=== PATIENT | female | born 1940 | race Caucasian/White ===

== ENCOUNTER 2016-12-14 15:12 | Inpatient (IN) | payer OTHER ==
[~2016-12-14] VITALS: Ht 149.9 cm; Wt 60.4 kg
[~2016-12-14 15:12] MED LIST: ANTIVERT 25MG #1 PAC PO; ATORVASTATIN CA80 MG PO; BABY ASPIRIN CH81 MG PO; CARVEDILOL6.25 MG PO; LIPOFLAVONOID1 TAB PO; LISINOPRIL20 MG PO; METFORMIN HCL500 MG PO; NITROSTAT0.4 MG PO; VICODIN5-300 PO
--- NOTE | 2016-12-14 15:41 | ED GENERAL ADULT ---
History of Present Illness General Chief Complaint: General Adult Stated Complaint: SIB FOR LOW BP Source: patient, old records Exam Limitations: no limitations Vital Signs & Intake/Output Vital Signs & Intake/Output Vital Signs Date Time Temp Pulse Resp B/P B/P Pulse O2 O2 Flow FiO2 Mean Ox Delivery Rate 12/15 0800 97.9 85 20 150/64 92 Nasal 2.0L Cannula 12/15 0017 Nasal 2.0L Cannula 12/14 2125 99.0 92 18 102/56 95 12/14 2037 98.9 89 18 115/56 96 Nasal 2.0L Cannula 12/14 1827 85 113/58 96 Nasal 2.0L Cannula 12/14 1728 80 109/56 95 Nasal 2.0L Cannula 12/14 1636 84 98/56 12/14 1553 97 Nasal 2.0L Cannula 12/14 1524 98.4 93 21 85/48 89 Room Air ED Intake and Output 12/15 0000 12/14 1200 Intake Total 0 Output Total Balance 0 Intake, Oral 0 Triage Note: PT TO ED FOR FOR 5 DAYS OF NAUSEA, VOMITING, GENERALIZED WEAKNESS AND DIARRHEA. PT HYPOTENSIVE IN TRIAGE. Triage Nurses Notes Reviewed? yes Onset: Abrupt Duration: week(s): (1), constant Timing: recent history Injury Environment: home Severity: moderate Severity Numbers: 6 No Modifying Factors: none Associated Symptoms: cough, DIARRHEA, POST TUSSIVE VOMITTING HPI: 76-year-old female history of coronary artery disease diabetes hypertension high cholesterol presents to ER with her family for evaluation complaining of generalized malaise and diarrhea for 1 week associated with nonproductive cough and posttussive vomiting for the past few days. Patient denies fevers chills however states she has not had anything to eat or drink in the past 3 days. On arrival patient is noted to be hypotensive. There's been no change in her mental status no recent fall or head trauma. Patient has not taken anything for her symptoms they called her primary care physician who referred her to the ER no sick contacts recent travel. (IRENE ART,BEATRIZ) Allergies Coded Allergies: Iodinated Contrast Media - Oral and (Severe, BLACKED OUT 12/15/16) MDX - [place] ([place]) (Mild, SINUS 11/20/13) adhesive tape (Mild, RASH 12/15/16) latex (Mild, RASH 12/15/16) atropine (From ) (UNKNOWN 12/15/16) hyoscyamine (From ) (UNKNOWN 12/15/16) phenobarbital (From ) (UNKNOWN 12/15/16) scopolamine (From ) (UNKNOWN 12/15/16) Uncoded Allergies: RAGWEED (Mild, SINUS 11/20/13) Reconcile Medications Acetaminophen (Tylenol Extra Strength) 500 MG TABLET 250 MG PO BID pain ( Reported) Aspirin (Children's Aspirin) 81 MG TAB 81 MG PO DAILY SUPPLEMENT (Reported) Atorvastatin Calcium (Lipitor) 80 MG TAB 1 TAB PO DAILY CHOLESTEROL (Reported ) Carvedilol 12.5 MG TABLET 12.5 MG PO BID blood pressure (Reported) Cetirizine HCl (Zyrtec) 10 MG CAPSULE 10 MG PO DAILY allergy relief (Reported ) Cholecalciferol (Vitamin D3) (Vitamin D3) 1,000 UNIT CAPSULE 1 CAP PO DAILY bone health (Reported) Lisinopril 10 MG TABLET 1 TAB PO DAILY blood pressure (Reported) Meclizine HCl 12.5 MG TABLET 1 TAB PO BID DIZINESS (Reported) (GABBY MARQUEZ,ERNESTINA) Past History Travel History Traveled to [place] past 21 day No Medical History Any Pertinent Medical History? 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 No (BEATRIZ ZIMMERMAN) Review of Systems Review of Systems Constitutional: Reports: see HPI. All Other Systems: Reviewed and Negative Comments Review of systems: See HPI, All other systems negative. Constitutional, no chills no fever, no malaise HEENT: No visual changes no sore throat no congestion Cardiovascular: No chest pain , no palpitation Skin: no rashes, no change in skin Respiratory: No dyspnea no cough no sputum GI: No nausea no vomiting, no diarrhea, : No dysuria Muscle skeletal: No joint pain, no joint swelling, no back pain Neurologic: No numbness no confusion, no headache Psych: No stress n Heme/endocrine: No bruising Immunology: No lymphadenopathy (BEATRIZ ZIMMERMAN) Physical Exam Physical Exam General Appearance: well developed/nourished, alert, awake Comments: Well-developed well-nourished person in no acute distress HEENT: Normal EENT exam; PERRL, EOMI,. HEAD is atraumatic. moist mucous membranes. Neck: Supple, normal range of motion Back: Nontender, no CVA tenderness. Full range of motion Cardiovascular: Regular rate and rhythms no murmurs rubs Respiratory: Chest nontender.There were no bony deformities, no asymmetry. No respiratory distress. Patient speaking in full complete sentences. Breath sounds clear to auscultation bilaterally: NO W/R/R Abdomen: Soft, nontender nondistended, no appreciable organomegaly. Normal bowel sounds. No rebound/guarding, Extremity: No edema, full range of motion of extremities, normal and equal pulses bilaterally, 5 out of 5 strength noted to bilateral upper and lower extremities Neuro: Alert oriented x3, motor sensory normal, cranial nerves II through XII grossly intact. There were no obvious focal neurologic abnormalities. Skin: No appreciable rash on exposed skin, skin is warm and dry. Psych: Mood and affect is normal, memory and judgment is normal. Core Measures ACS in differential dx? Yes CVA/TIA Diagnosis: No Severe Sepsis Present: Yes BC x2: Yes Lactic Acid x2: Yes IV ABX Broad Spectrum: Yes NS/LR Started: Yes Septic Shock Present: No (BEATRIZ ZIMMERMAN) ED Sepsis Exam Date of Focused Sepsis Exam: 12/14/16 Time of Focused Sepsis Exam: 1741 Sepsis Cardiac Exam: Regular Rate/Rhythm Sepsis Resp Exam: [place] Sepsis Cap Refill Exam: <2 Sec Sepsis Peripheral Pulse Exam: Normal Sepsis Peripheral Pulse Location: Radial Sepsis Skin Color Exam: Pale Skin Temp/Moisture Exam: Warm/Dry (BEATRIZ ZIMMERMAN) Progress Differential Diagnoses I considered the following diagnoses in my evaluation of the patient: [PNA, RAJ, ELECTROLYTE ABNORMALITY, SEPSIS, COLITIS, UTI, GI BLEED, ANEMIA, AMI Plan of Care: Orders Procedure Date/time Status Gluten Free Diet 12/15 B Active SWALLOW EVALUATION 12/15 0900 Active PT Evaluate & Treat 12/15 0800 Active MISTAKE 12/15 0700 Active MAGNESIUM 12/15 0655 Complete CBC WITHOUT DIFFERENTIAL 12/15 0600 Complete BASIC ELECTROLYTES PLUS BUN&CR 12/15 0600 Complete Vital Signs 12/15 0016 Active Teach/Educate 12/15 0016 Active Pain Treatment and Response 12/15 0016 Active Nutritional Intake, Monitor 12/15 0016 Active Isolation 12/15 0016 Active Intake & Output 12/15 0016 Active Patient Care Conference 12/15 0016 Active Activity/Ambulation 12/15 0016 Active PT EVAL LOW COMPLEX 20 MIN 12/15 UNK Complete Gait Training 12/15 UNK Complete House Staff 12/15 UNK Active Lab Add-on Test 12/15 UNK Active MISSING MEDICATION FORM 12/15 UNK Active Regular Diet 12/14 D Complete C.DIFFICILE 12/14 2247 Active Patient Data 12/14 1857 Active LACTIC ACID 12/14 1840 Complete TRC EVALUATION (GEN) 12/14 1818 Active LOWER RESPIRATORY CULTURE 12/14 1818 Active Pathway - chart 12/14 1800 Active Code Status 12/14 1800 Active Patient Data 12/14 1742 Active Admit to inpatient 12/14 1739 Active Vital Signs 12/14 1739 Active Code Status 12/14 1739 Complete GLYCOSYLATED HGB 12/14 1554 Complete FOLIC ACID 12/14 1554 Complete VITAMIN B12 12/14 1554 Complete CULTURE,URINE 12/14 1540 Active BLOOD CULTURE 12/14 1540 Active URINALYSIS 12/14 1540 Complete TROPONIN LEVEL 12/14 1540 Complete LACTIC ACID 12/14 1540 Complete COMPREHENSIVE METABOLIC PANEL 12/14 1540 Complete CBC WITHOUT DIFFERENTIAL 12/14 1540 Complete B-TYPE NATRIURETIC PEP (BNP) 12/14 1540 Complete TYPE & SCREEN (NOT X-MATCH) 12/14 1540 Complete Intake & Output 12/14 1536 Complete House Staff 12/14 UNK Active Lab Add-on Test 12/14 UNK Active VTE Mechanical Prophylaxis 12/14 UNK Active Vital Signs 12/14 UNK Active Telemetry/Shipping And Receiving Material Handler 12/14 UNK Active Hemoccult 05/16 UNK Active CMS- Neurovascular Checks 12/14 UNK Active Current Medications Sig/Luz Elena Start time Last Medication Dose Stop Time Status Admin Atorvastatin Calcium 80 MG 1700 12/15 1700 AC (Lipitor) Aspirin 81 MG DAILY 12/15 1000 AC 12/15 (Aspirin) 1024 Ceftriaxone Sodium 1,000 MG DAILY 12/15 1000 AC 12/15 (Rocephin) 1023 Cholecalciferol 1,000 IU DAILY 12/15 1000 AC 12/15 (Vitamin D) 1024 Loratadine 10 MG DAILY PRN 12/15 0745 AC 12/15 (Claritin) 1024 Heparin Sodium 5,000 UNIT Q8 12/14 2200 AC 12/15 (Porcine) 0600 Meclizine HCl 12.5 MG BID 12/14 2200 AC 12/15 (Antivert) 1024 Acetaminophen 650 MG Q6P PRN 12/14 1800 AC (Tylenol) Acetaminophen 1,000 MG Q6P PRN 12/14 1800 AC (Ofirmev) Hydromorphone HCl 0.5 MG Q4P PRN 12/14 1800 AC (Dilaudid) Laboratory Tests 12/15/16 0655: Anion Gap 12, Estimated GFR > 60, BUN/Creatinine Ratio 50.0 H, Magnesium 1.7, CBC w Diff MAN DIFF ORDERED, RBC 3.83 L, MCV 62.2 L, MCH 20.4 L, RDW 14.7 H, MPV 7.4, Segmented Neutrophils 60, Lymphocytes 27, Monocytes 10 H, Eosinophils 3, Platelet Estimate VERIFIED BY SMEAR, Hypochromic-Microcytic 1+, Poikilocytosis 1+, Anisocytosis 1+, Microcytic Cells 2+, PUBS MCHC 32.8 L 12/14/162031: Lactic Acid 0.9 12/14/16 1712: Urinalysis LIGHT H, Urine Color YEL, Urine Clarity CLDY H, Urine pH 5.5, Ur Specific [place] 1.025, Urine Protein 100 H, Urine Ketones TRACE H, Urine Nitrite NEG, Urine Bilirubin NEG@ICTO, Urine Urobilinogen 1.0, Ur Leukocyte Esterase LARGE H, Ur Microscopic SEDIMENT EXAMINED, Urine RBC RARE, Urine WBC 15-25 H, Ur Epithelial Cells MANY H, Urine Bacteria PACKD H, Hyaline Casts RARE H, Urine Mucus MOD H, Urine Hemoglobin NEG, Urine Glucose NEG 12/14/16 1554: Anion Gap 17 H, Estimated GFR 44 L, BUN/Creatinine Ratio 26.7 H, Glucose 118 H, Hemoglobin A1c 6.4 H, Lactic Acid 2.6 H, Calcium 9.2, Total Bilirubin 0.6, AST 27, ALT 41, Alkaline Phosphatase 68, Troponin I < 0.01, Zsu-X-Exnagbdmnwe Pept 387 H, Total Protein 7.4, Albumin 4.2, Globulin 3.2, Albumin/Globulin Ratio 1.3, Vitamin B12 293, Folate 10.2, CBC w Diff MAN DIFF ORDERED, RBC 4.75, MCV 63.5 L, MCH 20.3 L, RDW 14.6 H, MPV 7.3 L, Gran % 67.7, Lymphocytes % 25.0, Monocytes % 6.7, Eosinophils % 0.3, Basophils % 0.3, Absolute Granulocytes 8.4 H, Absolute Lymphocytes 3.1, Absolute Monocytes 0.8 H, Absolute Eosinophils 0, Absolute Basophils 0, Platelet Estimate ADEQUATE, Hypochromic- Microcytic 1+, Poikilocytosis 1+, Target Cells RARE, Stomatocytes 1+, Elliptocytes RARE, PUBS MCHC 32.0 L Microbiology 12/14 2247 STOOL: Clostridium difficile Toxin A & B - COLB 12/14 1818 LOWER RESP: Respiratory Culture - COLB 12/14 1818 LOWER RESP: Gram Stain - COLB 12/14 1800 BLOOD: Blood Culture - [facility]KST 12/14 1712 URINE ROUT: Urine Culture - RES BETA STREP GROUP B 12/14 1630 BLOOD: Blood Culture - [facility] Labs ordered old records reviewed case discussed with Dr. Harvey who evaluated the patient agrees with plan IV fluids running DuoNeb ordered pts h/h at baseline case d/w pt and family need for admission. d/w dr meza will admit rocephin 1g iv ordered (BEATRIZ ZIMMERMAN) Patient evaluated at bedside with RUBENS Hooker. Awake, mentating. Appears very dry. Improving BP afterrepeat fluid boluses. Possible syncopa episode, will place on telemetry. (GABBY MARQUEZ,ERNESTINA) Diagnostic Imaging: Viewed by Me: Radiology Read. Discussed w/RAD: Radiology Read. Radiology Impression: PATIENT: LILLIE ROGERS PRESENT AGE: 76 PATIENT ACCOUNT NO: [id number] : 39 LOCATION: [facility] ORDERING PHYSICIAN: BEATRIZ ART SERVICE DATE: 12/14/16-6731 EXAM TYPE: RAD - XRY- PORTABLE CHEST XRAY EXAMINATION: XR PORTABLE CHEST CLINICAL INFORMATION: Pneumonia hypotension dyspnea COMPARISON: Chest x-ray January 2014 TECHNIQUE: AP portable a degree upright view FINDINGS: Persistent prominent elevation of the left hemidiaphragm unchanged. Minimal scarring or discoid atelectasis at the left base similar to prior. The right lung is clear. The cardiac silhouette and pulmonary vascularity are normal. There is some calcification of the dorsal aorta. There is a convex right curvature of the dorsal spine unchanged. IMPRESSION: No acute disease. Stable elevation of the left hemidiaphragm. Minimal scar or recurrent discoid atelectasis at the left base. DICTATED BY: BRENNA AMARAL MD DATE/TIME DICTATED:12/14/161618 HACKLER DOLL WIGS: [place] DATE/TIME TRANSCRIBED:12/14/161618 CONFIDENTIAL, DO NOT COPY WITHOUT APPROPRIATE AUTHORIZATION. <Electronically signed in Other Vendor System> SIGNED BY: BRENNA AMARAL MD 12/14/161625 Initial ED EKG: nsr at 80, pacs, no acute st seg changes Prior EKG: unchanged (04/2015) (BEATRIZ ZIMMERMAN) Differential Diagnoses I considered the following diagnoses in my evaluation of the patient: (GABBY MARQUEZ,ERNESTINA) Departure Departure Time of Disposition: 1740 Disposition: HOME OR SELF CARE Condition: Stable Clinical Impression Primary Impression: Sepsis Secondary Impressions: Dehydration, Lactic acidosis Referrals: LUCIA MARQUEZ,SHAUN Aden (PCP/Family) Departure Forms: Customer Survey General Discharge Information Admission Note Spoke With: ROSETTE GALDAMEZ MD Documentation of Exam: Documentation of any treatments & extenuating circumstances including Concerns Regarding Discharge (functional status, medication knowledge or non-compliance, living conditions, etc.) that warrant an admission rather than observation: IV antibiotics IV fluids trend labs and cultures premature discharge would BE medically harmful (BEATRIZ ZIMMERMAN) PA/TRIM AND BURR OPERATOR Co-Sign Statement Statement: ED Attending supervision documentation- [X] I saw and evaluated the patient. I have also reviewed all the pertinent lab results and diagnostic results. I agree with the findings and the plan of care as documented in the PA's/TRIM AND BURR OPERATOR's documentation. [X] I have reviewed the ED Record and agree with the PA's/TRIM AND BURR OPERATOR's documentation. [] Additions or exceptions (if any) to the PAs/TRIM AND BURR OPERATOR's note and plan are summarized below: [] (GABBY MARQUEZ,ERNESTINA) Critical Care Note Critical Care Note Critical Care Time: non-applicable (IRENE ART,BEATRIZ)
[2016-12-14 16:18] LABS: ABSOLUTE BASOPHIL COUNT 0 /CUMM (0.0-0.2); ABSOLUTE LYMPH COUNT 3.1 /CUMM (1.2-3.4); MEAN PLATELET VOLUME 7.3 FL (7.4-10.4)
[2016-12-14 16:21] LABS: ABSOLUTE EOSINOPHIL COUNT 0 /CUMM (0.0-0.7); ABSOLUTE GRANULOCYTE CT 8.4 /CUMM (1.4-6.5); ABSOLUTE MONOCYTE COUNT 0.8 /CUMM (0.10-0.60); BASOPHIL % 0.3 % (0.0-2.0); EOSINOPHIL % 0.3 % (0-5); HEMATOCRIT 30.2 % (37-47); MEAN CORPUSCULAR HGB 20.3 PG (27.0-31.0); MEAN CORPUSCULAR VOLUME 63.5 FL (81.0-99.0); PLATELET COUNT 387 /CUMM (130-400); RBC DISTRIBUTION WIDTH 14.6 % (11.5-14.5); RED BLOOD CELL CT 4.75 /CUMM (4.20-5.40); WHITE BLOOD CELL COUNT 12.4 /CUMM (4.8-10.8)
[2016-12-14 16:24] LABS: GRANULOCYTE % 67.7 % (42.2-75.2)
--- NOTE | 2016-12-14 16:26 | RADIOLOGY REPORT ---
EXAMINATION: XR PORTABLE CHEST CLINICAL INFORMATION: Pneumonia hypotension dyspnea COMPARISON: Chest x-ray January 2014 TECHNIQUE: AP portable a degree upright view FINDINGS: Persistent prominent elevation of the left hemidiaphragm unchanged. Minimal scarring or discoid atelectasis at the left base similar to prior. The right lung is clear. The cardiac silhouette and pulmonary vascularity are normal. There is some calcification of the dorsal aorta. There is a convex right curvature of the dorsal spine unchanged. IMPRESSION: No acute disease. Stable elevation of the left hemidiaphragm. Minimal scar or recurrent discoid atelectasis at the left base.
[2016-12-14] MEDS ORDERED: LISINOPRIL10 M1 PO (16:41)
[2016-12-14] MEDS ORDERED: VITAMIN D31000 UNI1 PO (16:42)
[2016-12-14] MEDS ORDERED: TYLENOL EXTRA500 M2 PO (16:43)
[2016-12-14] MEDS ORDERED: ZYRTEC10 M6 PO (16:45)
[2016-12-14] MEDS ORDERED: CARVEDILOL12.5 M1 PO (16:46)
--- NOTE | 2016-12-14 18:09 | History & Physical ---
RUSTAM MARQUEZ,KP 12/14/16 8172: General Information and HPI MD Statement: I have seen and personally examined LILLIE ROGERS and documented this H&P. The patient is a 76 year old F who presented with a patient stated chief complaint of [weakness and lethargic]. Source of Information: patient, old records Exam Limitations: no limitations History of Present Illness: This is a 76-year-old female with a past medical history of hypertension, history of hyperlipidemia, celiac disease ,history of abnormal nuclear stress test showing mild apical and treated you mild anterior septal infarct for which she declined cardiac catheterization in aug 2016, dizziness who presented to the [facility] after she started feeling weak and lethargic for the last 4 days. The patient's symptoms started with mild cough which was productive next 24 hours coming of whitish yellow sputum.Denies any sick contacts or recent travels. She denied any fever or chills but has been feeling nauseous and had intermittent vomiting with mild diarrhea. The patient has not been able to tolerate by mouth intake for the last 3 days, until today when she had to boils egg whites which she was able to keep down. She has noticed that she has increased difficulty in swallowing. Patient has a history of dizziness in the past for which she was on Antivert previously but has noticed that her dizziness is more pronounced and is position related. She also had recurrent falls in the last 1 month, twice but she did not hit her head and lost her balance due to dizziness.She did land on her butticks. No urinary complains ,denies any burning sensation or any increased frequency. Allergies/Medications Allergies: Coded Allergies: Iodinated Contrast Media - Oral and (Severe, BLACKED OUT 12/15/16) MDX - [place] (GOLDENROD) (Mild, SINUS 11/20/13) adhesive tape (Mild, RASH 12/15/16) latex (Mild, RASH 12/15/16) atropine (From ) (UNKNOWN 12/15/16) hyoscyamine (From ) (UNKNOWN 12/15/16) phenobarbital (From ) (UNKNOWN 12/15/16) scopolamine (From ) (UNKNOWN 12/15/16) Uncoded Allergies: RAGWEED (Mild, SINUS 11/20/13) Home Med list Acetaminophen (Tylenol Extra Strength) 500 MG TABLET 250 MG PO BID pain ( Reported) Aspirin (Children's Aspirin) 81 MG TAB 81 MG PO DAILY SUPPLEMENT (Reported) Atorvastatin Calcium (Lipitor) 80 MG TAB 1 TAB PO DAILY CHOLESTEROL (Reported ) Carvedilol 12.5 MG TABLET 12.5 MG PO BID blood pressure (Reported) Cetirizine HCl (Zyrtec) 10 MG CAPSULE 10 MG PO DAILY allergy relief (Reported ) Cholecalciferol (Vitamin D3) (Vitamin D3) 1,000 UNIT CAPSULE 1 CAP PO DAILY bone health (Reported) Lisinopril 10 MG TABLET 1 TAB PO DAILY blood pressure (Reported) Meclizine HCl 12.5 MG TABLET 1 TAB PO BID DIZINESS (Reported) Past History Travel History Traveled to [place] past 21 day No Medical History Neurological: vertigo EENT: NONE Cardiovascular: hypertension, myocardial infarction, HIGH CHOLESTEROL Respiratory: NONE Gastrointestinal: DUODENAL LYMPHOMA s/p chemotherapy Hepatic: NONE Renal: NONE Musculoskeletal: R KNEE REPLACEMENT ARTHRITIS Psychiatric: NONE Endocrine: diabetes, HYPOTHYROID Blood Disorders: NONE Cancer(s): 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 self Services at Home: None Smoking Status: Never Smoked ETOH Use: denies use Illicit Drug Use: denies illicit drug use Functional Ability ADLs Independent: dressing, eating, toileting, bathing. Ambulation: independent, uses a walker only at night IADLs Independent: shopping, housework, finances, food prep, telephone, medication admin. Review of Systems Review of Systems Constitutional: Reports: see HPI. EENTM: Reports: see HPI. Cardiovascular: Reports: see HPI. Respiratory: Reports: see HPI, cough, short of breath, sputum production. GI: Reports: see HPI. Genitourinary: Reports: see HPI. Skin: Reports: see HPI. Exam & Diagnostic Data Last 24 Hrs of Vital Signs/I&O Vital Signs Date Time Temp Pulse Resp B/P B/P Pulse O2 O2 Flow FiO2 Mean Ox Delivery Rate 12/14 1827 85 113/58 96 Nasal 2.0L Cannula 12/14 1728 80 109/56 95 Nasal 2.0L Cannula 12/14 1636 84 98/56 12/14 1553 97 Nasal 2.0L Cannula 12/14 1524 98.4 93 21 85/48 89 Room Air Intake & Output 12/14 1600 12/14 0800 12/14 0000 Intake Total 0 Output Total Balance 0 Intake, Oral 0 Physical Exam General Appearance Alert, Oriented X3, Cooperative Skin No Rashes, No Breakdown Skin Temp/Moisture Exam: Warm/Dry Sepsis Skin Exam (color): Normal for Ethnicity, Cyanotic HEENT Atraumatic, PERRLA, EOMI Neck Supple, No JVD Lymphatic Axillary nl Cardiovascular Regular Rate, Normal S1, Normal S2 Lungs Clear to Auscultation, Normal Air Movement Abdomen Soft, No Tenderness Neurological Normal Speech, Strength at 5/5 X4 Ext, Normal Tone, Sensation Intact, Cranial Nerves 3-12 NL Extremities No Clubbing, No Cyanosis, No Edema Assessment/Plan Assessment: Is a 76-year-old female with a past medical history of hypertension, hyperlipidemia,, abnormal nuclear stress test in the past, COPD disease, vertigo , who presented to the [facility] with persistent shortness of breath, and dysphagia associated with whitish sputum Vitals at the time of admission showed a blood pressure of85/58, saturation of 89% on room air, respiration rate of 18, pulse rate of 93, Labs shows a WBC of 12,000, elevated BUNs and creatinine of 1.2 Normal troponin EKG shows normal sinus rhythm with mild ST-T wave depression and inversion Assessment 1. SIRS with sepsis secondary to community-acquired pneumonia versus aspiration( LESS likely) considering that the patient had persistent dysphagia and vomitus. 2. Hypotension and dehydration secondary to decreased oral by mouth intake and persisitent diarrhea and c/w hypertensive meds at home 3.RAJ likely from dehydration 4.Acute lactic acidosis and elevated anion gap secondary to underlying infection and dehydration 3. History of celiac disease and acute diarrhea a 4. History of systolic heart failure with ejection fraction of 40-45% in generally 2017 (has seen Dr. Junior in the past) 5. Persistent dizziness and presyncopal episode in the last 1 week: This can be a BPPV . but can be vasovagal versus acute posterior cerebellar stroke( considering dysphagia, recurrent falls and dizziness) 6.Recuurent falls-twice in last month. 7.H/O thaleseemia Chronic Anemia Plan We will admit the patient to telemetry for previous heart disease and underlying cardiac arrythmias. Neuro checks q4 Ct head to r/o posterior stroke Cardiology consulataion in am with Dr junior and follow his nrecommendation for TTE Panculture C/w IV ceftriaxone and Azithromycin Trend lactic acid Fromal swallow eval in am. She passed the bedside swallow eval We can start her on glutein free diet Consider doing CT chest vs repeat CXR with a/p view in am for better lung parenchymal evlauation if still hypoxiac C/w Ns @ 100 cc /hr Will check pelvic xray for any fx as she had recurrent falls. Orthostats in am C/w MECLIZINE. Patient is fc DVT s/q Heparin As Ranked By This Provider Problem List: 1. Sepsis 2. Dehydration 3. Lactic acidosis Core Measures/Miscellaneous Acute Coronary Syndrome ACS Diagnosis: No Cerebrovascular Accident CVA/TIA Diagnosis: No Congestive Heart Failure CHF Diagnosis: No Venous Thromboembolism VTE Risk Factors: Acute medical illness, Age > 40 No Mech VTE prophylaxis d/t: VTE low risk, No contraindications No VTE Pharm Prophylaxis d/t: VTE low risk, No contraindications VTE Diagnosis: No VTE Type: NONE VTE Confirmed by (Test): NONE Severe Sepsis Severe Sepsis Present: Yes BC x2: Yes Lactic Acid x2: Yes IV ABX Broad Spectrum: Yes NS/LR Started: Yes Septic Shock Septic Shock Present: No Miscellaneous Documentation Attending Case Discussed With: SOO ISAAC MD Primary Care Physician: SHAUN MYERS MD Patient sees these Specialists Patient has seen Dr. Max with the past Level of Patient Care: General Medicine SOO ISAAC 12/14/161933: Attending Review Statement Attending Statement Attending MD Statement: examined this patient, discuss w/resident/PA/CRANE CHASER, agreed w/resident/PA/CRANE CHASER, discussed with family, reviewed EMR data (avail), reviewed images, amended to note Attending Assessment/Plan: CC: CAD, HTN, HLD, B-cell and HL lymphoma S/P chemotherapy, ? Thalassemia, celiac disease, vertigo, HFrEF (EF 40- 45% ) Patient went to see her PCP with multiple complaints, her blood pressure was found to be low and she was rushed to ER. Since 4-5 days patient noticed worsening of sinus congestion followed by cough later on became productive with white to yellowish sputum production. Also mentions a raspy voice, chest congestion. Denies any chest pain, pleuritic pain, unusual shortness of breath, fever, chills. Patient also complains of nausea vomiting and diarrhea since last 3 to 4 days, unable to take any oral intake since last 3 days. According to daughter patient has long-standing celiac disease and if she eats something like bread or pasta she would get diarrhea. According to daughter patient may have "cheated", patient avoids that question in humor. Patient denies any abdominal pain, any blood in the vomiting or stool. She denies any urinary complaints including burning, frequency, painful urination, suprapubic pain. According to daughter, patient urinates frequently and she is worried about diabetes. Patient complains of some low back pain and HUSSEIN because of hyperextension of right leg after knee surgery, occasionally uses walker. In Last 7 days, patient "almost passed" out twice. She fell down on commode, hitting her head to wall and pubis to come on yesterday (according to daughter), her day before (according to patient). According to daughter patient is not herself and appears confused. Patient endorses dizziness upon sudden standing last 1 week Vitals: Blood pressure at arrival 85/48, responded to 1 L normal saline improved to 109/56 with second liter bolus, afebrile, pulse in 90s, RR 21 at arrival and saturating 89% on room air, improved with 2 L nasal cannula to 97%. On exam: A O 3, cooperative, no acute distress, neck supple, JVD normal, no lymphadenopathy, mucosa dry, no pharyngeal congestion, no focal neurological deficit, no dependent edema, no obvious skin rashes or inflammation CVS: S1-S2, RRR. RS: ? Right base, no wheezing. Abdomen: Soft, NT, ND, bowel sounds present, no CVA tenderness. Peripheral pulses perfusion normal. Labs: WBC 12.4, hemoglobin 9.6, MCV 63, platelets 387, sodium 133, chloride 93, bicarbonate 24, anion gap 17, BUN 32, creatinine 1.2, glucose 119, calcium 9.2, lactate 2.6, LFT unremarkable, proBNP 387. UA positive for large leukocyte esterase, rare hyaline cast, many epithelial cells. CXR: No acute disease. EKG: Multiple PACs A and P Patient has multiple complaints as mentioned above. Cough with expectoration, diarrhea and vomiting, decreased oral intake, dizziness, presyncopal episode, falls. Patient presented hypotensive and responded to fluid, lactic Acid was elevated at presentation. At this point unclear source of infection as patient does not have any urinary symptoms, urine negative for nitrites but positive for leukocyte esterase at the same time many epithelial cells. Less likely urinary tract infection. Patient has productive cough since last 4-5 days, followed by sinus congestion. Chest x-ray does not show any consolidation but given her hypotension and dehydration pneumonia should be ruled out after repeat imaging after hydration. On examination she has fine crackles on the right base. Currently we will treat this as community-acquired pneumonia, if repeat chest x- ray PA lateral is negative can de-escalate the antibiotics. Patient also has nausea vomiting and diarrhea probably related to her celiac disease, rule out C. difficile. It is possible that as patient was having diarrhea and dehydration she was taking her antihypertensive which may have precipitated hypotension. Patient had multiple presyncopal episodes and couple of falls, ? Orthostatic, given her CAD history, silent AK, arrhythmia should be ruled out. # Rule out Community-acquired pneumonia # ? Bronchitis # Diarrhea # Presyncope # Fall # Chronic anemia - Admit to telemetry - Patient received 2 L normal saline so far continue third liter with 100 mL per hour, recheck blood pressure at the end of third liter. His blood pressure is stable DC IV fluids - Telemetry monitoring - Continue IV ceftriaxone and azithromycin - Repeat chest x-ray PA lateral in a.m. - Blood culture, sputum culture, urine culture - Trend lactic acid - EKG in a.m. - Hold oral antihypertensives - Continue aspirin, statin - Gluten-free diet - C. difficile if not sent - HbA1c - Stool guaiac - Pelvic x-ray to rule out fracture given her recent fall - Orthostatic vital in a.m. - OT PT evaluation
[2016-12-14] MEDS ORDERED: MECLIZINE HCL12.5 M1 PO (18:58)
--- NOTE | 2016-12-14 19:07 | CT SCAN REPORT ---
EXAMINATION: CT HEAD WITHOUT CONTRAST CLINICAL INFORMATION: Recurrent falls and nausea. Imbalance. COMPARISON: 02/11/2014. TECHNIQUE: Contiguous axial imaging was performed from the skull base to vertex without intravenous contrast. DLP: 534 mGy-cm. FINDINGS: There is no evidence of acute intracranial hemorrhage or territorial infarction. No abnormal mass effect or midline shift is seen. Coates to white matter differentiation is well preserved. No extra-axial fluid collections are identified. No hydrocephalus. Proportional prominence of the ventricles and sulcal spaces is consistent with mild volume loss. Patchy periventricular and deep white matter hypoattenuation is consistent with mild small vessel ischemic changes. The osseous structures and soft tissues are normal. The mastoid air cells and visualized portions of the paranasal sinuses are well aerated. IMPRESSION: No acute intracranial pathology. Mild volume loss with small vessel ischemic change.
--- NOTE | 2016-12-14 20:30 | RADIOLOGY REPORT ---
EXAMINATION: XR PELVIS CLINICAL INFORMATION: Fall 2 days ago COMPARISON: CT 04/10/2015 TECHNIQUE: AP view of the pelvis. FINDINGS: The bones are osteopenic. There is a corticated ossification adjacent to the right superior acetabulum. This is unchanged from the CT from 2014, likely associated with a chronic fracture of the right greater trochanteric. The pelvic rim is intact. The sacroiliac joints and pubic symphysis are intact. Right pelvic phlebolith noted. IMPRESSION: No evidence of acute fracture or malalignment. Chronic fracture of the right greater trochanter.
[2016-12-14 21:25] VITALS: BP 102/56
--- NOTE | 2016-12-14 22:03 | Admission Certification ---
Admission Certification Certification Statement - As attending physician, I certify that at the time of - admission, based on clinical presentation, severity of - symptoms, need for further diagnostic testing and - therapeutic interventions, and risk of adverse outcomes - without in-hospital treatment, in my clinical assessment, - this patient requires an acute hospital stay for a minimum - of two nights or longer. I have also considered psychsocial - factors such as support system, advanced age, financial - issues, cognitive issues, and failed out-patient treatments, - past re-admission history, safety of patient, and lack of - compliance as applicable. Specific rationale supporting this admission is: Hypotension, diarrhea, ? Pneumonia
--- NOTE | 2016-12-15 05:45 | PN- Housestaff ---
See Addendum Subjective Follow-up For: UTI Subacute infarct Tele-Events Since Last Visit: NSR with rate in 70-90s Subjective: Patient seen and examined at bedside. Alert, awake and oriented x 3. Resting comfortably in bed. She reports feeling better overall. Tolerated breakfast for the first time in 4 days without any n/v. Reports persistent diarrhea which has been ongoing for 2 weeks now. Denies any dyspnea, chest pain, palpitations, lightheadedness, dizziness, abdominal pain. No events reported overnight. Review of Systems Constitutional: Reports: see HPI. Objective Last 24 Hrs of Vital Signs/I&O Vital Signs Date Time Temp Pulse Resp B/P B/P Pulse O2 O2 Flow FiO2 Mean Ox Delivery Rate 12/15 0800 97.9 85 20 150/64 92 Nasal 2.0L Cannula 12/15 0017 Nasal 2.0L Cannula 12/14 2125 99.0 92 18 102/56 95 12/14 2037 98.9 89 18 115/56 96 Nasal 2.0L Cannula 12/14 1827 85 113/58 96 Nasal 2.0L Cannula 12/14 1728 80 109/56 95 Nasal 2.0L Cannula 12/14 1636 84 98/56 12/14 1553 97 Nasal 2.0L Cannula 12/14 1524 98.4 93 21 85/48 89 Room Air Intake & Output 12/15 1600 12/15 0800 12/15 0000 Intake Total 100 Output Total 420 Balance -320 Intake, Oral 100 Output, Urine 420 Physical Exam General Appearance: Alert, Oriented X3, Cooperative, No Acute Distress Other Physical Findings: Skin No Rashes, No Breakdown Skin Temp/Moisture Exam: Warm/Dry Sepsis Skin Exam (color): Normal for Ethnicity, Cyanotic HEENT Atraumatic, PERRLA, EOMI Neck Supple, No JVD Lymphatic Axillary nl Cardiovascular Regular Rate, Normal S1, Normal S2 Lungs Wheezing bilaterally, Normal Air Movement Abdomen Soft, No Tenderness Neurological Normal Speech, Strength at 5/5 X4 Ext, Normal Tone, Sensation Intact, Cranial Nerves 3-12 NL Extremities No Clubbing, No Cyanosis, No Edema Current Medications: Current Medications Sig/Luz Elena Start time Last Medication Dose Route Stop Time Status Admin Acetaminophen 650 MG Q6P PRN 12/14 1800 AC PO Acetaminophen 1,000 MG Q6P PRN 12/14 1800 AC IV Albuterol Sulfate 3 ML ONCE ONE 12/14 1545 DC 12/14 INH 12/14 1546 1546 Aspirin 81 MG DAILY 12/15 1000 AC 12/15 PO 1024 Atorvastatin Calcium 80 MG 1700 12/15 1700 AC PO Azithromycin 250 MG DAILY 12/15 1000 DC PO Azithromycin 500 MG ONCE ONE 12/14 1830 DC 12/14 Sodium Chloride 250 ML IV 12/14 1929 1837 Ceftriaxone Sodium 1,000 MG DAILY 12/15 1000 AC 12/15 IV 1023 Ceftriaxone Sodium 0 .STK-MED ONE 12/14 1820 DC .ROUTE Ceftriaxone Sodium 1,000 MG ONCE ONE 12/14 1745 DC 12/14 IV 12/14 174 1822 Cholecalciferol 1,000 IU DAILY 12/15 1000 AC 12/15 PO 1024 Heparin Sodium 5,000 UNIT Q8 12/14 2200 AC 12/15 (Porcine) SC 0600 Hydromorphone HCl 0.5 MG Q4P PRN 12/14 1800 AC IV Ipratropium [place] 2.5 ML ONCE ONE 12/14 1545 DC 12/14 INH 12/14 1546 1546 Loratadine 10 MG DAILY PRN 12/15 0745 AC 12/15 PO 1024 Meclizine HCl 12.5 MG BID 12/14 2200 AC 12/15 PO 1024 Naloxone HCl 0 .STK-MED ONE 12/14 1920 DC .ROUTE Potassium Chloride 40 MEQ ONCE ONE 12/15 0945 DC 12/15 PO 12/15 0946 1025 Potassium Chloride 10 MEQ ONCE ONE 12/15 0945 DC 12/15 PO 12/15 0946 1024 Sodium Chloride 1,000 ML ONCE ONE 12/14 1815 DC 12/14 IV 12/15 0414 2140 Sodium Chloride 1,000 ML BOLUS ONE 12/14 1715 DC 12/14 IV 12/14 1814 1805 Sodium Chloride 1,000 ML BOLUS ONE 12/14 1545 DC 12/14 IV 12/14 1644 1546 Last 24 Hrs of Lab/Shai Results Last 24 Hrs of Labs/Mics: Laboratory Tests 12/15/16 0655: Anion Gap 12, Estimated GFR > 60, BUN/Creatinine Ratio 50.0 H, Magnesium 1.7, CBC w Diff MAN DIFF ORDERED, RBC 3.83 L, MCV 62.2 L, MCH 20.4 L, RDW 14.7 H, MPV 7.4, Segmented Neutrophils 60, Lymphocytes 27, Monocytes 10 H, Eosinophils 3, Platelet Estimate VERIFIED BY SMEAR, Hypochromic-Microcytic 1+, Poikilocytosis 1+, Anisocytosis 1+, Microcytic Cells 2+, PUBS MCHC 32.8 L 12/14/162031: Lactic Acid 0.9 12/14/161711: Urinalysis LIGHT H, Urine Color YEL, Urine Clarity CLDY H, Urine pH 5.5, Ur Specific [place] 1.025, Urine Protein 100 H, Urine Ketones TRACE H, Urine Nitrite NEG, Urine Bilirubin NEG@ICTO, Urine Urobilinogen 1.0, Ur Leukocyte Esterase LARGE H, Ur Microscopic SEDIMENT EXAMINED, Urine RBC RARE, Urine WBC 15-25 H, Ur Epithelial Cells MANY H, Urine Bacteria PACKD H, Hyaline Casts RARE H, Urine Mucus MOD H, Urine Hemoglobin NEG, Urine Glucose NEG 12/14/16 1554: Anion Gap 17 H, Estimated GFR 44 L, BUN/Creatinine Ratio 26.7 H, Glucose 118 H, Hemoglobin A1c 6.4 H, Lactic Acid 2.6 H, Calcium 9.2, Total Bilirubin 0.6, AST 27, ALT 41, Alkaline Phosphatase 68, Troponin I < 0.01, Oqy-P-Cooaykvlcch Pept 387 H, Total Protein 7.4, Albumin 4.2, Globulin 3.2, Albumin/Globulin Ratio 1.3, Vitamin B12 293, Folate 10.2, CBC w Diff MAN DIFF ORDERED, RBC 4.75, MCV 63.5 L, MCH 20.3 L, RDW 14.6 H, MPV 7.3 L, Gran % 67.7, Lymphocytes % 25.0, Monocytes % 6.7, Eosinophils % 0.3, Basophils % 0.3, Absolute Granulocytes 8.4 H, Absolute Lymphocytes 3.1, Absolute Monocytes 0.8 H, Absolute Eosinophils 0, Absolute Basophils 0, Platelet Estimate ADEQUATE, Hypochromic- Microcytic 1+, Poikilocytosis 1+, Target Cells RARE, Stomatocytes 1+, Elliptocytes RARE, PUBS MCHC 32.0 L Microbiology 12/14 2247 STOOL: Clostridium difficile Toxin A & B - COLB 12/14 1817 LOWER RESP: Respiratory Culture - COLB 12/14 1817 LOWER RESP: Gram Stain - COLB 12/14 1800 BLOOD: Blood Culture - [facility] 12/14 1712 URINE ROUT: Urine Culture - RES BETA STREP GROUP B 12/14 1630 BLOOD: Blood Culture - [facility] Assessment/Plan Assessment: 76 year old female with PMH of HTN, HLD, and CAD presenting with multiple complaints including ough with expectoration, diarrhea, nausea, vomiting, decreased oral intake, dizziness, and presyncopal episode with a recentl fall. Most likely decompensation from UTI and dehydration. # Sepsis 2/2 UTI and possible PNA WBC and LA on admission elevated with HR over 90. Most likely source of infection is urological origin given the UA showing large leuk esterase with high epith cells, WBC and bacteria. Although patient has no urinary sxs we will treat for UTI. LA trended down. PNA was initially suspected but this is unlikely in the setting of negative CXR x 2 and clinical presentation. Pt was placed on CTX and Zithromax IV empirically for PNA upon admission. * Continue IV CTX and Zithromax * Follow urine/blood cultures * Hypotension resolved with IVF resucstation. As such hypotension is more attributable to dehydration than sepsis. * Rule out c.diff in the context of persistent diarrhea # Diarrhea Patient also had diarrhea with intermitten nausea vomiting for the past 2 weeks. Most likely viral gastroenteritis with a possibility of celiac disease contributing. * Check c. diff * Imodium if negtaive for c. diff # Presyncope and recent fall Most likely 2/2 dehydration from diarrhea. Patient received 3 L normal saline yest with an improvement in dizziness. BP remains in a stable normal range. * Hold IV hydration as patient is tolerating PO intake * Monitor vitals closely for hypotension * Orthostats * PT/OT * Serial troponins & EKGs negative # History of HTN * Hold antihypertensives Norvasc and lisinopril for now # H/o HLD, CAD * Continue home doses of aspirin and statin - Gluten-free diet - Mild pain pathway - DVTppx with Lovenox - Full code. Problem List: 1. Sepsis 2. Dehydration 3. Nausea Pain Ratin Pain Location: 0 Pain Goal: Remain pain free Pain Plan: Mild pain pathway Tomorrow's Labs & Rationales: CBC - anemia
[2016-12-15 08:00] VITALS: BP 150/64
[2016-12-15 08:02] LABS: MEAN CORPUSCULAR HGB 20.4 PG (27.0-31.0); MEAN CORPUSCULAR HGB CONC 32.8 G/DL (33.0-37.0); MEAN CORPUSCULAR VOLUME 62.2 FL (81.0-99.0); MEAN PLATELET VOLUME 7.4 FL (7.4-10.4); PLATELET COUNT 260 /CUMM (130-400); RBC DISTRIBUTION WIDTH 14.7 % (11.5-14.5); RED BLOOD CELL CT 3.83 /CUMM (4.20-5.40); WHITE BLOOD CELL COUNT 7.6 /CUMM (4.8-10.8)
[2016-12-15 08:37] LABS: HEMATOCRIT 23.8 % (37-47)
--- NOTE | 2016-12-15 08:44 | RADIOLOGY REPORT ---
EXAMINATION: XR CHEST CLINICAL INFORMATION: Hypoxia and cough. Evaluate pneumonia. COMPARISON: CXR from 02/01/2014 and 12/14/2016 TECHNIQUE: 2 views of the chest were obtained. FINDINGS: The left diaphragm is chronically elevated and there is discoid atelectasis in the left lower lobe. No acute pulmonary consolidation, interstitial edema or pleural effusion. Cardiac silhouette is normal in size. Thoracic aorta is calcified. Bone density is diffusely decreased and there is multilevel degenerative disc space narrowing and osteophyte formation of the dextroscoliotic spine. Cholecystectomy clips are present in the right upper abdomen. IMPRESSION: 1. No radiographic evidence of acute pneumonia. 2. Chronic left diaphragm elevation and associated discoid atelectasis in the left lower lobe.
--- NOTE | 2016-12-15 11:56 | Cons- Cardiology ---
See Addendum GLENN MARQUEZ,GATRH 12/15/16 1125: General Information and HPI Consulting Request Date of Consult: 12/15/16 Requested By: SOO ISAAC MD Reason for Consult: Syncope Source of Information: patient, old records Exam Limitations: no limitations History of Present Illness: 76-year-old female with a past medical history of hypertension, hyperlipidemia, celiac disease, congestive heart failure EF 40-45%. She was admitted to the hospital yesterday complaining of weakness, lethargy, dry cough, with intermittent vomiting for the past 4 days. She was not tolerating oral intake during this time. She was on her commode and fell off after feeling dizzy, reports headstrike w/o loss of consciousness. Reports feeling short of breath, is on 2LNC, normally does not use oxygen at home. Provides of history of dizziness for which she takes meclizine. Reports that her dizziness this time is different, she feels lightheaded. Denies chest pain, chest discomfort, palpitations. Denies urinary symptoms. Allergies/Medications Allergies: Coded Allergies: Iodinated Contrast Media - Oral and (Severe, BLACKED OUT 12/15/16) MDX - [place] (GOLDENROD) (Mild, SINUS 11/20/13) adhesive tape (Mild, RASH 12/15/16) latex (Mild, RASH 12/15/16) atropine (From ) (UNKNOWN 12/15/16) hyoscyamine (From ) (UNKNOWN 12/15/16) phenobarbital (From ) (UNKNOWN 12/15/16) scopolamine (From ) (UNKNOWN 12/15/16) Uncoded Allergies: RAGWEED (Mild, SINUS 11/20/13) Home Med List: Acetaminophen (Tylenol Extra Strength) 500 MG TABLET 250 MG PO BID pain ( Reported) Aspirin (Children's Aspirin) 81 MG TAB 81 MG PO DAILY SUPPLEMENT (Reported) Atorvastatin Calcium (Lipitor) 80 MG TAB 1 TAB PO DAILY CHOLESTEROL (Reported ) Carvedilol 12.5 MG TABLET 12.5 MG PO BID blood pressure (Reported) Cetirizine HCl (Zyrtec) 10 MG CAPSULE 10 MG PO DAILY allergy relief (Reported ) Cholecalciferol (Vitamin D3) (Vitamin D3) 1,000 UNIT CAPSULE 1 CAP PO DAILY bone health (Reported) Lisinopril 10 MG TABLET 1 TAB PO DAILY blood pressure (Reported) Meclizine HCl 12.5 MG TABLET 1 TAB PO BID DIZINESS (Reported) Current Medications: Current Medications Sig/Luz Elena Start time Last Medication Dose Route Stop Time Status Admin Acetaminophen 650 MG Q6P PRN 12/14 1800 AC PO Acetaminophen 1,000 MG Q6P PRN 12/14 1800 AC IV Albuterol Sulfate 3 ML ONCE ONE 12/14 1545 DC 12/14 INH 12/14 1546 1546 Aspirin 81 MG DAILY 12/15 1000 AC 12/15 PO 1024 Atorvastatin Calcium 80 MG 1700 12/15 1700 AC PO Azithromycin 250 MG DAILY 12/15 1000 DC PO Azithromycin 500 MG ONCE ONE 12/14 1830 DC 12/14 Sodium Chloride 250 ML IV 12/14 1929 1837 Ceftriaxone Sodium 1,000 MG DAILY 12/15 1000 AC 12/15 IV 1023 Ceftriaxone Sodium 0 .STK-MED ONE 12/14 1820 DC .ROUTE Ceftriaxone Sodium 1,000 MG ONCE ONE 12/14 1745 DC 12/14 IV 12/14 1746 1822 Cholecalciferol 1,000 IU DAILY 12/15 1000 AC 12/15 PO 1024 Heparin Sodium 5,000 UNIT Q8 12/14 2200 AC 12/15 (Porcine) SC 0600 Hydromorphone HCl 0.5 MG Q4P PRN 12/14 1800 AC IV Ipratropium [place] 2.5 ML ONCE ONE 12/14 1545 DC 12/14 INH 12/14 1546 1546 Loratadine 10 MG DAILY PRN 12/15 0745 AC 12/15 PO 1024 Meclizine HCl 12.5 MG BID 12/14 2200 AC 12/15 PO 1024 Naloxone HCl 0 .STK-MED ONE 12/14 1920 DC .ROUTE Potassium Chloride 40 MEQ ONCE ONE 12/15 0945 DC 12/15 PO 12/15 0946 1025 Potassium Chloride 10 MEQ ONCE ONE 12/15 0945 DC 12/15 PO 12/15 0946 1024 Sodium Chloride 1,000 ML ONCE ONE 12/14 1815 DC 12/14 IV 12/15 0414 2140 Sodium Chloride 1,000 ML BOLUS ONE 12/14 1715 DC 12/14 IV 12/14 1814 1805 Sodium Chloride 1,000 ML BOLUS ONE 12/14 1545 DC 12/14 IV 12/14 1644 1546 Review of Systems Review of Systems Constitutional: Reports: malaise, weakness. Denies: chills, fever. Cardiovascular: Denies: chest pain, orthopena, palpitations, syncope. Respiratory: Reports: cough, short of breath. Denies: orthopnea, sputum production, wheezing. GI: Reports: diarrhea, vomiting. Denies: abdominal pain, constipation. Genitourinary: Denies: dysuria, frequency, hematuria, pain, urgency. Musculoskeletal: Reports: no symptoms. Past History Travel History Traveled to [place] past 21 day No Medical History Neurological: vertigo EENT: NONE Cardiovascular: hypertension, myocardial infarction, HIGH CHOLESTEROL Respiratory: NONE Gastrointestinal: DUODENAL LYMPHOMA s/p chemotherapy Hepatic: NONE Renal: NONE Musculoskeletal: R KNEE REPLACEMENT ARTHRITIS Psychiatric: NONE Endocrine: diabetes, HYPOTHYROID Blood Disorders: NONE Cancer(s): DUODENAL CA PER PT DINING MANAGER/Reproductive: NONE Surgical History Surgical History: CHOLY,HYSTERECTOMY Family History Relations & Conditions If Any: SISTER *No pertinent family history FH: diabetes mellitus BROTHER FH: diabetes mellitus FH: lymphoma MOTHER Relation not specified for: FH: heart disease Psychosocial History Where Do You Live? Home Who Do You Live With? self Services at Home: None Smoking Status: Never Smoked ETOH Use: denies use Illicit Drug Use: denies illicit drug use Functional Ability ADLs Independent: dressing, eating, toileting, bathing. Ambulation: independent, uses a walker only at night IADLs Independent: shopping, housework, finances, food prep, telephone, medication admin. ECHO Results (as available) Report: Documentation note EF 40-45% 08/2016 Report not seen in chart Exam & Diagnostic Data Vital Signs and I&O Vital Signs Date Time Temp Pulse Resp B/P B/P Pulse O2 O2 Flow FiO2 Mean Ox Delivery Rate 12/15 0800 97.9 85 20 150/64 92 Nasal 2.0L Cannula 12/15 0017 Nasal 2.0L Cannula 12/14 2125 99.0 92 18 102/56 95 12/14 2037 98.9 89 18 115/56 96 Nasal 2.0L Cannula 12/14 1827 85 113/58 96 Nasal 2.0L Cannula 12/14 1728 80 109/56 95 Nasal 2.0L Cannula 12/14 1636 84 98/56 12/14 1553 97 Nasal 2.0L Cannula 12/14 1524 98.4 93 21 85/48 89 Room Air Intake & Output 12/15 1600 12/15 0800 12/15 0000 12/14 1600 12/14 0800 12/14 0000 Intake Total 100 0 Output Total 420 Balance -320 0 Intake, Oral 100 0 Output, Urine 420 Physical Exam General Appearance: well developed/nourished, no apparent distress, alert, awake , comfortable Head: atraumatic, normal appearance Eyes: Bilateral: PERRL, EOMI. Neck: normal inspection, supple Respiratory: crackles, wheezing Cardiovascular: regular rate/rhythm, normal peripheral pulses Peripheral Pulses: 2+ radial (L), 2+ ulnar (L) Gastrointestinal: normal bowel sounds, soft, non-tender Extremities: no edema Neurologic/Psych: awake, alert, oriented x 3 Labs/Shai Results: Laboratory Tests 12/15 12/14 0655 2032 Chemistry Sodium (137 - 145 mmol/L) 137 Potassium (3.5 - 5.1 mmol/L) 3.5 Chloride (98 - 107 mmol/L) 102 Carbon Dioxide (22 - 30 mmol/L) 23 Anion Gap (5 - 16) 12 BUN (7 - 17 mg/dL) 25 H Creatinine (0.5 - 1.0 mg/dL) 0.5 Estimated GFR (>60 ml/min) > 60 BUN/Creatinine Ratio (7 - 25 %) 50.0 H Lactic Acid (0.7 - 2.1 mmol/L) 0.9 Magnesium (1.6 - 2.3 mg/dL) 1.7 Hematology CBC w Diff MAN DIFF ORDERED WBC (4.8 - 10.8 /CUMM) 7.6 RBC (4.20 - 5.40 /CUMM) 3.83 L Hgb (12.0 - 16.0 G/DL) 7.8 L Hct (37 - 47 %) 23.8 L MCV (81.0 - 99.0 FL) 62.2 L MCH (27.0 - 31.0 PG) 20.4 L RDW (11.5 - 14.5 %) 14.7 H Plt Count (130 - 400 /CUMM) 260 MPV (7.4 - 10.4 FL) 7.4 Segmented Neutrophils (42.2 - 75.2 %) 60 Lymphocytes (20.5 - 51.1 %) 27 Monocytes (1.7 - 9.3 %) 10 H Eosinophils (0 - 5.0 %) 3 Platelet Estimate (ADEQUATE) VERIFIED BY SMEAR Hypochromic-Microcytic 1+ Poikilocytosis 1+ Anisocytosis 1+ Microcytic Cells 2+ PUBS MCHC (33.0 - 37.0 G/DL) 32.8 L 12/14 12/14 1712 1554 Chemistry Sodium (137 - 145 mmol/L) 133 L Potassium (3.5 - 5.1 mmol/L) 4.1 Chloride (98 - 107 mmol/L) 93 L Carbon Dioxide (22 - 30 mmol/L) 24 Anion Gap (5 - 16) 17 H BUN (7 - 17 mg/dL) 32 H Creatinine (0.5 - 1.0 mg/dL) 1.2 H Estimated GFR (>60 ml/min) 44 L BUN/Creatinine Ratio (7 - 25 %) 26.7 H Glucose (65 - 99 mg/dL) 118 H Hemoglobin A1c (4.2 - 5.8 %) 6.4 H Lactic Acid (0.7 - 2.1 mmol/L) 2.6 H Calcium (8.4 - 10.2 mg/dL) 9.2 Total Bilirubin (0.2 - 1.3 mg/dL) 0.6 AST (14 - 36 U/L) 27 ALT (9 - 52 U/L) 41 Alkaline Phosphatase (<127 U/L) 68 Troponin I (< 0.11 ng/ml) < 0.01 Oma-P-Ojshxlvmfsy Pept (<125 pg/mL) 387 H Total Protein (6.3 - 8.2 g/dL) 7.4 Albumin (3.5 - 5.0 g/dL) 4.2 Globulin (1.9 - 4.2 gm/dL) 3.2 Albumin/Globulin Ratio (1.1 - 2.2 %) 1.3 Vitamin B12 (239 - 931 pg/mL) 293 Folate (2.76 - 20.0 ng/mL) 10.2 Hematology CBC w Diff MAN DIFF ORDERED WBC (4.8 - 10.8 /CUMM) 12.4 H RBC (4.20 - 5.40 /CUMM) 4.75 Hgb (12.0 - 16.0 G/DL) 9.6 L Hct (37 - 47 %) 30.2 L MCV (81.0 - 99.0 FL) 63.5 L MCH (27.0 - 31.0 PG) 20.3 L RDW (11.5 - 14.5 %) 14.6 H Plt Count (130 - 400 /CUMM) 387 MPV (7.4 - 10.4 FL) 7.3 L Gran % (42.2 - 75.2 %) 67.7 Lymphocytes % (20.5 - 51.1 %) 25.0 Monocytes % (1.7 - 9.3 %) 6.7 Eosinophils % (0 - 5 %) 0.3 Basophils % (0.0 - 2.0 %) 0.3 Absolute Granulocytes (1.4 - 6.5 /CUMM) 8.4 H Absolute Lymphocytes (1.2 - 3.4 /CUMM) 3.1 Absolute Monocytes (0.10 - 0.60 /CUMM) 0.8 H Absolute Eosinophils (0.0 - 0.7 /CUMM) 0 Absolute Basophils (0.0 - 0.2 /CUMM) 0 Platelet Estimate (ADEQUATE) ADEQUATE Hypochromic-Microcytic 1+ Poikilocytosis 1+ Target Cells RARE Stomatocytes 1+ Elliptocytes RARE PUBS MCHC (33.0 - 37.0 G/DL) 32.0 L Urines Urinalysis LIGHT H Urine Color (YEL,AMB,STR) YEL Urine Clarity (CLEAR) CLDY H Urine pH (5.0 - 8.0) 5.5 Ur Specific [place] (1.001 - 1.035) 1.025 Urine Protein (NEG,<30 MG/DL) 100 H Urine Ketones (NEG) TRACE H Urine Nitrite (NEG) NEG Urine Bilirubin (NEG) NEG@ICTO Urine Urobilinogen (0.1 - 1.0 EU/dl) 1.0 Ur Leukocyte Esterase (NEG) LARGE H Ur Microscopic SEDIMENT EXAMINED Urine RBC (0 - 5 /HPF) RARE Urine WBC (0 - 2 /HPF) 15-25 H Ur Epithelial Cells (NONE,FEW) MANY H Urine Bacteria (NEG/NONE) PACKD H Hyaline Casts (0/LPF) RARE H Urine Mucus (FEW,NONE) MOD H Urine Hemoglobin (NEG) NEG Urine Glucose (N MG/DL) NEG Diagnostic Data EKG Results SR 82, PACs CXR Results 1. No radiographic evidence of acute pneumonia. 2. Chronic left diaphragm elevation and associated discoid atelectasis in the left lower lobe. Other Results No acute intracranial pathology. Mild volume loss with small vessel ischemic change. No evidence of acute fracture or malalignment. Chronic fracture of the right greater trochanter. Assessment/Plan Assessment/Plan 76-year-old female with a past medical history of hypertension, hyperlipidemia, celiac disease, congestive heart failure EF 40-45%. Presents after a syncopal episode at home. She reports episodes of nausea/vomiting with diarrhea. Overnight telemetry has been SR 74-94 PACs. Her syncopal episode appears to be due to dehydration, she does complain of shortness of breath this could be due to her decreased HH. She chanda chest pain, discomfort or palpitations. Syncope Conitnue to monitor on telemetry for another 24 hrs. Would check orthostatics. Low BP likley due to dehyration vs sepsis. Appears to have microcytic anemia. Would check iron studies. Will check recent ECHO report. Problem List: 1. Syncope Consult Acknowledgment - Thank you for your consult request. BRENNA DOAN MD 12/15/16 8260: Assessment/Plan Assessment/Plan Attending Addendum: The patient was seen and examined by myself. I have reviewed all of the available ECGs, radiology studies and lab data and I agree with the plan as outlined above. The patient will be monitored on telemetry for now. Consult Acknowledgment - Thank you for your consult request.
[2016-12-15 16:15] VITALS: BP 140/70
[2016-12-15 20:10] LABS: ABSOLUTE BASOPHIL COUNT 0 /CUMM (0.0-0.2); ABSOLUTE EOSINOPHIL COUNT 0.1 /CUMM (0.0-0.7); ABSOLUTE LYMPH COUNT 2.5 /CUMM (1.2-3.4); ABSOLUTE MONOCYTE COUNT 0.6 /CUMM (0.10-0.60); BASOPHIL % 0.2 % (0.0-2.0); MEAN CORPUSCULAR HGB 20.5 PG (27.0-31.0); MEAN CORPUSCULAR HGB CONC 32.5 G/DL (33.0-37.0); MEAN PLATELET VOLUME 7.4 FL (7.4-10.4); PLATELET COUNT 341 /CUMM (130-400); RBC DISTRIBUTION WIDTH 14.6 % (11.5-14.5); WHITE BLOOD CELL COUNT 8.2 /CUMM (4.8-10.8)
[2016-12-15 21:27] LABS: GRANULOCYTE % 60.8 % (42.2-75.2)
[2016-12-16 00:11] VITALS: BP 106/60
--- NOTE | 2016-12-16 06:51 | PN- Housestaff ---
See Addendum Subjective Follow-up For: PNA vs. UTI Sepsis - resolved Tele-Events Since Last Visit: NSR with rate in 70-100 Subjective: Patient seen and examined at bedside. Resting comfortably in bed. Reports feeling better overall with no new complaints. Has not had any BM yet since the admission. Denies any dyspnea, chest pain, palpitations, lightheadedness, dizziness, abdominal pain. No events reported overnight. Review of Systems Constitutional: Reports: see HPI. Objective Last 24 Hrs of Vital Signs/I&O Vital Signs Date Time Temp Pulse Resp B/P B/P Pulse O2 O2 Flow FiO2 Mean Ox Delivery Rate 12/16 0812 98.4 102 18 124/70 97 Nasal Cannula 12/16 0011 98.8 86 18 106/60 98 Nasal Cannula 12/16 0000 Nasal 2.0L Cannula 12/15 1615 98.8 87 14 140/70 98 Nasal 2.0L Cannula 12/15 1610 98 Nasal 2.0L Cannula 12/15 1249 Nasal 2.0L Cannula Intake & Output 12/16 1600 12/16 0800 12/16 0000 Intake Total 120 240 Output Total 450 Balance -330 240 Intake, Oral 120 240 Number 0 Bowel Movements Output, Urine 450 Physical Exam General Appearance: Alert, Oriented X3, Cooperative, No Acute Distress Other Physical Findings: Skin No Rashes, No Breakdown Skin Temp/Moisture Exam: Warm/Dry Sepsis Skin Exam (color): Normal for Ethnicity, Cyanotic HEENT Atraumatic, PERRLA, EOMI Neck Supple, No JVD Lymphatic Axillary nl Cardiovascular Regular Rate, Normal S1, Normal S2 Lungs Wheezing bilaterally, Normal Air Movement Abdomen Soft, No Tenderness Neurological Normal Speech, Strength at 5/5 X4 Ext, Normal Tone, Sensation Intact, Cranial Nerves 3-12 NL Extremities No Clubbing, No Cyanosis, No Edema Current Medications: Current Medications Sig/Luz Elena Start time Last Medication Dose Route Stop Time Status Admin Acetaminophen 650 MG Q6P PRN 12/14 1800 AC PO Acetaminophen 1,000 MG Q6P PRN 12/14 1800 DC IV Albuterol Sulfate 3 ML EVERY 4 HRS/AWAKE 12/15 1200 AC 12/15 INH 2023 Albuterol Sulfate 3 ML BID 12/15 1148 DC 12/15 INH 1149 Aspirin 81 MG DAILY 12/15 1000 AC 12/15 PO 1024 Atorvastatin Calcium 80 MG 1700 12/15 1700 AC 12/15 PO 1708 Azithromycin 250 MG DAILY 12/16 1000 AC PO Azithromycin 250 MG DAILY 12/15 1000 DC PO Ceftriaxone Sodium 1,000 MG DAILY 12/15 1000 AC 12/15 IV 1023 Cholecalciferol 1,000 IU DAILY 12/15 1000 AC 12/15 PO 1024 Heparin Sodium 5,000 UNIT Q8 12/14 2200 AC 12/16 (Porcine) SC 0611 Hydromorphone HCl 0.5 MG Q4P PRN 12/14 1800 AC IV Loratadine 10 MG DAILY PRN 12/15 0745 AC 12/15 PO 1024 Magnesium Chloride 64 MG ONCE ONE 12/15 1445 DC 12/15 PO 12/15 1446 1708 Magnesium Oxide 400 MG ONE ONE 12/16 0845 DC PO 12/16 0846 Meclizine HCl 12.5 MG BID 12/14 2200 AC 12/15 PO 2018 Potassium Chloride 40 MEQ ONCE ONE 12/15 0945 DC 12/15 PO 12/15 0946 1025 Potassium Chloride 10 MEQ ONCE ONE 12/15 0945 DC 12/15 PO 12/15 0946 1024 Last 24 Hrs of Lab/Shai Results Last 24 Hrs of Labs/Mics: Laboratory Tests 12/16/16 0628: Magnesium 1.7, CBC w Diff Pending, WBC Pending, RBC Pending, Hgb Pending, Hct Pending, MCV Pending, MCH Pending, RDW Pending, Plt Count Pending, MPV Pending, PUBS MCHC Pending 12/15/16 1830: CBC w Diff NO MAN DIFF REQ, RBC 3.80 L, MCV 63.0 L, MCH 20.5 L, RDW 14.6 H, MPV 7.4, Gran % 60.8, Lymphocytes % 30.1, Monocytes % 7.9, Eosinophils % 1.0, Basophils % 0.2, Absolute Granulocytes 5.0, Absolute Lymphocytes 2.5, Absolute Monocytes 0.6, Absolute Eosinophils 0.1, Absolute Basophils 0, PUBS MCHC 32.5 L 12/15/16 1800: CBC w Diff Cancelled, WBC Cancelled, RBC Cancelled, Hgb Cancelled, Hct Cancelled , MCV Cancelled, MCH Cancelled, RDW Cancelled, Plt Count Cancelled, MPV Cancelled, PUBS MCHC Cancelled Assessment/Plan Assessment: 76 year old female with PMH of HTN, HLD, and CAD presenting with multiple complaints including ough with expectoration, diarrhea, nausea, vomiting, decreased oral intake, dizziness, and presyncopal episode with a recentl fall. Most likely decompensation from UTI and dehydration. # Sepsis 2/2 UTI and possible PNA WBC and LA on admission elevated with HR over 90. Most likely source of infection is urological origin given the UA showing large leuk esterase with high epith cells, WBC and bacteria. Although patient has no urinary sxs we will treat for UTI. LA trended down. PNA was initially suspected but this is unlikely in the setting of negative CXR x 2 and clinical presentation. Pt was placed on CTX and Zithromax IV empirically for PNA upon admission. * Continue IV CTX and Zithromax * Follow urine/blood cultures * Hypotension resolved with IVF resucstation. As such hypotension is more attributable to dehydration than sepsis. * Rule out c.diff in the context of persistent diarrhea # Diarrhea Patient also had diarrhea with intermitten nausea vomiting for the past 2 weeks. Most likely viral gastroenteritis with a possibility of celiac disease contributing. * Check c. diff * Imodium if negtaive for c. diff # Presyncope and recent fall Most likely 2/2 dehydration from diarrhea. Patient received 3 L normal saline yest with an improvement in dizziness. BP remains in a stable normal range. * Hold IV hydration as patient is tolerating PO intake * Monitor vitals closely for hypotension * Orthostats * PT/OT * Serial troponins & EKGs negative # History of HTN * Hold antihypertensives Norvasc and lisinopril for now # H/o HLD, CAD * Continue home doses of aspirin and statin - Gluten-free diet - Mild pain pathway - DVTppx with Lovenox - Full code. Problem List: 1. Syncope 2. Sepsis 3. Dehydration 4. Lactic acidosis Pain Ratin Pain Location: 0 Pain Goal: Remain pain free Pain Plan: Mild path Tomorrow's Labs & Rationales: BEP - potassium, Mg
[2016-12-16 08:10] LABS: ABSOLUTE BASOPHIL COUNT 0 /CUMM (0.0-0.2); ABSOLUTE EOSINOPHIL COUNT 0.1 /CUMM (0.0-0.7); ABSOLUTE GRANULOCYTE CT 3.2 /CUMM (1.4-6.5); ABSOLUTE LYMPH COUNT 2.5 /CUMM (1.2-3.4); ABSOLUTE MONOCYTE COUNT 0.6 /CUMM (0.10-0.60); BASOPHIL % 0 % (0.0-2.0); EOSINOPHIL % 2.1 % (0-5); GRANULOCYTE % 49.7 % (42.2-75.2); MEAN CORPUSCULAR HGB 20.3 PG (27.0-31.0); MEAN CORPUSCULAR HGB CONC 32.3 G/DL (33.0-37.0); MEAN CORPUSCULAR VOLUME 62.7 FL (81.0-99.0); MEAN PLATELET VOLUME 7.3 FL (7.4-10.4); PLATELET COUNT 358 /CUMM (130-400); RBC DISTRIBUTION WIDTH 14.8 % (11.5-14.5); RED BLOOD CELL CT 3.98 /CUMM (4.20-5.40); WHITE BLOOD CELL COUNT 6.5 /CUMM (4.8-10.8)
[2016-12-16 08:12] VITALS: BP 124/70
--- NOTE | 2016-12-16 11:15 | Discharge Summary ---
See Addendum Visit Information Visit Dates Admission Date: 12/14/16 Discharge Date: 12/17/16 Hospital Course Course Attending Physician: BRENNA BLEDSOE MD Primary Care Physician: LUCIA MARQUEZ,SHAUN Aden Hospital Course: 76 year old female with PMH of HTN, HLD, and CAD presenting with multiple complaints including cough with expectoration, diarrhea, nausea, vomiting, decreased oral intake, dizziness, and presyncopal episode with a recentl fall. Most likely decompensation 2/2 UTI and dehydration. # Sepsis 2/2 UTI and possible PNA WBC and LA on admission elevated with HR over 90. Most likely source of infection is urological origin given the UA showing large leuk esterase with high epith cells, WBC and bacteria. Although the patient had no urinary sxs we treated for UTI. LA trended down. PNA was initially suspected but this was considered unlikely in the setting of negative CXR x 2 and clinical presentation. Pt was placed on CTX and Zithromax IV empirically for PNA upon admission. Patient was kept on IV CTX and Zithromax since the admission. Urine culture grew group B strep. No growth on blood culture. # Diarrhea - resolved Patient had diarrhea with intermitten nausea vomiting for the past 2 weeks. Most likely viral gastroenteritis with a possibility of celiac disease contributing. Patient had no episdoes of diarrhea during her hopsitalization. # Presyncope and recent fall Most likely 2/2 dehydration from diarrhea. Patient received 3 L normal saline on admission with an improvement in dizziness. BP has remained in a stable normal range since then. Serial troponins & EKGs negative. # History of HTN Home antihypertensives Norvasc and lisinopril were held. # H/o HLD, CAD Patient was kept on home doses of aspirin and statin. - Gluten-free diet - Mild pain pathway - DVTppx with Lovenox - Full code. Allergies: Coded Allergies: Iodinated Contrast Media - Oral and (Severe, BLACKED OUT 12/15/16) MDX - [place] ([place]) (Mild, SINUS 11/20/13) adhesive tape (Mild, RASH 12/15/16) latex (Mild, RASH 12/15/16) atropine (From ) (UNKNOWN 12/15/16) hyoscyamine (From ) (UNKNOWN 12/15/16) phenobarbital (From ) (UNKNOWN 12/15/16) scopolamine (From ) (UNKNOWN 12/15/16) Uncoded Allergies: [place] (Mild, SINUS 11/20/13) Disposition Summary Disposition Principal Diagnosis: Sepsis 2/2 UTI and bronchitis Additional Diagnosis: Bronchitis Discharge Disposition: home health services Discharge Instructions General Discharge Information Code Status: Full Code Patient's Diet: Heart healthy Patient's Activity: As tolerated with device Follow-Up Instructions/Appts: Please follow up with primary care provider within 1 [address] Junior (corporate responsibility officer) within 2 weeks. Medications at Discharge Discharge Medications: Continue taking these medications: Atorvastatin Calcium (Lipitor) 80 MG TAB 1 Tablet ORAL DAILY Comments: Last Taken:04/14/15 Time:956 Aspirin (Children's Aspirin) 81 MG TAB 81 Milligram ORAL DAILY Comments: Last Taken:04/14/15 Time:956 Lisinopril (Lisinopril) 10 MG TABLET 1 Tablet ORAL DAILY Cholecalciferol (Vitamin D3) (Vitamin D3) 1,000 UNIT CAPSULE 1 Capsule ORAL DAILY Acetaminophen (Tylenol Extra Strength) 500 MG TABLET 250 Milligram ORAL TWICE DAILY Cetirizine HCl (Zyrtec) 10 MG CAPSULE 10 Milligram ORAL DAILY Carvedilol (Carvedilol) 12.5 MG TABLET 12.5 Milligram ORAL TWICE DAILY Qty = 180 Meclizine HCl (Meclizine HCl) 12.5 MG TABLET 1 Tablet ORAL TWICE DAILY Qty = 30 Start taking the following new medications: Azithromycin (Azithromycin) 250 MG TABLET 250 Milligram ORAL DAILY Days = 2 No Refills Instructions: Stop after last dose on 12/18 Amoxicillin (Amoxicillin) 500 MG CAPSULE 500 Milligram ORAL TWICE DAILY Days = 4 No Refills Instructions: Stop after last dose on 12/20. Copies To: LUCIA MARQUEZ,SHAUN Aden; PATRICK MARQUEZ,RIKI
--- NOTE | 2016-12-16 12:22 | PN- Cardiology ---
Subjective Subjective: Feeling better. Cough has resolved. No chest pain. No lightheadedness or dizziness. No nausea or vomiting. Shortness of breath is improving. Objective Vital Signs and I&Os Vital Signs Date Time Temp Pulse Resp B/P B/P Pulse O2 O2 Flow FiO2 Mean Ox Delivery Rate 12/16 0812 98.4 102 18 124/70 97 Nasal Cannula 12/16 0800 Room Air 12/16 0011 98.8 86 18 106/60 98 Nasal Cannula 12/16 0000 Nasal 2.0L Cannula 12/15 1615 98.8 87 14 140/70 98 Nasal 2.0L Cannula 12/15 1610 98 Nasal 2.0L Cannula 12/15 1249 Nasal 2.0L Cannula Intake & Output 12/16 1600 12/16 0800 12/16 0000 12/15 1600 12/15 0800 12/15 0000 Intake Total 634 897 8884 100 Output Total 450 420 Balance -601 200 7961 -320 Intake, IV 800 Intake, Oral 120 240 720 100 Number 0 Bowel Movements Output, Urine 450 420 Patient 133 lb Weight Weight Chair scale Measurement Method Physical Exam: Gen: NAD HEENT: normal Lungs: Scattered rales, normal resp. effort Heart: RRR, S1, S2, no murmurs Abdomen: Soft, nontender, no masses Extremities: No clubbing, cyanosis, or edema. Neuro: Alert and oriented x 3, cranial nerves intact Current Medications: Current Medications Sig/Luz Elena Start time Last Medication Dose Route Stop Time Status Admin Acetaminophen 650 MG Q6P PRN 12/14 1800 AC PO Acetaminophen 1,000 MG Q6P PRN 12/14 1800 DC IV Albuterol Sulfate 3 ML Q4P PRN 12/16 1130 AC INH Albuterol Sulfate 3 ML EVERY 4 HRS/AWAKE 12/15 1200 DC 12/16 INH 0926 Aspirin 81 MG DAILY 12/15 1000 AC 12/16 PO 1047 Atorvastatin Calcium 80 MG 1700 12/15 1700 AC 12/15 PO 1708 Azithromycin 250 MG DAILY 12/16 1000 AC 12/16 PO 1047 Ceftriaxone Sodium 1,000 MG DAILY 12/15 1000 AC 12/16 IV 1047 Cholecalciferol 1,000 IU DAILY 12/15 1000 AC 12/16 PO 1047 Guaifenesin 600 MG Q12 12/16 1000 AC 12/16 PO 1047 Heparin Sodium 5,000 UNIT Q8 05/16 2200 AC 12/16 (Porcine) SC 0611 Hydromorphone HCl 0.5 MG Q4P PRN 12/14 1800 AC IV Loratadine 10 MG DAILY PRN 12/15 0745 AC 12/15 PO 1024 Magnesium Chloride 64 MG ONCE ONE 12/15 1445 DC 12/15 PO 12/15 1446 1708 Magnesium Oxide 400 MG ONE ONE 12/16 0845 DC 12/16 PO 12/16 0846 1046 Meclizine HCl 12.5 MG BID 12/14 2199 AC 12/16 PO 1047 Potassium Chloride 10 MEQ ONCE ONE 12/16 0930 DC 12/16 PO 12/16 0931 1046 Results Last 48 Hrs of Labs/Mics: Laboratory Tests 12/16/16 0628: Magnesium 1.7, CBC w Diff NO MAN DIFF REQ, RBC 3.98 L, MCV 62.7 L, MCH 20.3 L , RDW 14.8 H, MPV 7.3 L, Gran % 49.7, Lymphocytes % 38.5, Monocytes % 9.7 H, Eosinophils % 2.1, Basophils % 0 L, Absolute Granulocytes 3.2, Absolute Lymphocytes 2.5, Absolute Monocytes 0.6, Absolute Eosinophils 0.1, Absolute Basophils 0, PUBS MCHC 32.3 L 12/15/16 1830: CBC w Diff NO MAN DIFF REQ, RBC 3.80 L, MCV 63.0 L, MCH 20.5 L, RDW 14.6 H, MPV 7.4, Gran % 60.8, Lymphocytes % 30.1, Monocytes % 7.9, Eosinophils % 1.0, Basophils % 0.2, Absolute Granulocytes 5.0, Absolute Lymphocytes 2.5, Absolute Monocytes 0.6, Absolute Eosinophils 0.1, Absolute Basophils 0, PUBS MCHC 32.5 L 12/15/16 1800: CBC w Diff Cancelled, WBC Cancelled, RBC Cancelled, Hgb Cancelled, Hct Cancelled , MCV Cancelled, MCH Cancelled, RDW Cancelled, Plt Count Cancelled, MPV Cancelled, PUBS MCHC Cancelled 12/15/16 0655: Anion Gap 12, Estimated GFR > 60, BUN/Creatinine Ratio 50.0 H, Magnesium 1.7, Iron 25 L, TIBC 207 L, Ferritin 513.0 H, CBC w Diff MAN DIFF ORDERED, RBC 3.83 L, MCV 62.2 L, MCH 20.4 L, RDW 14.7 H, MPV 7.4, Segmented Neutrophils 60, Lymphocytes 27, Monocytes 10 H, Eosinophils 3, Platelet Estimate VERIFIED BY SMEAR, Hypochromic-Microcytic 1+, Poikilocytosis 1+, Anisocytosis 1+, Microcytic Cells 2+, PUBS MCHC 32.8 L 12/14/162031: Lactic Acid 0.9 12/14/161711: Urinalysis LIGHT H, Urine Color YEL, Urine Clarity CLDY H, Urine pH 5.5, Ur Specific [place] 1.025, Urine Protein 100 H, Urine Ketones TRACE H, Urine Nitrite NEG, Urine Bilirubin NEG@ICTO, Urine Urobilinogen 1.0, Ur Leukocyte Esterase LARGE H, Ur Microscopic SEDIMENT EXAMINED, Urine RBC RARE, Urine WBC 15-25 H, Ur Epithelial Cells MANY H, Urine Bacteria PACKD H, Hyaline Casts RARE H, Urine Mucus MOD H, Urine Hemoglobin NEG, Urine Glucose NEG 12/14/16 1554: Anion Gap 17 H, Estimated GFR 44 L, BUN/Creatinine Ratio 26.7 H, Glucose 118 H, Hemoglobin A1c 6.4 H, Lactic Acid 2.6 H, Calcium 9.2, Total Bilirubin 0.6, AST 27, ALT 41, Alkaline Phosphatase 68, Troponin I < 0.01, [id number] Pept 387 H, Total Protein 7.4, Albumin 4.2, Globulin 3.2, Albumin/Globulin Ratio 1.3, Vitamin B12 293, Folate 10.2, CBC w Diff MAN DIFF ORDERED, RBC 4.75, MCV 63.5 L, MCH 20.3 L, RDW 14.6 H, MPV 7.3 L, Gran % 67.7, Lymphocytes % 25.0, Monocytes % 6.7, Eosinophils % 0.3, Basophils % 0.3, Absolute Granulocytes 8.4 H, Absolute Lymphocytes 3.1, Absolute Monocytes 0.8 H, Absolute Eosinophils 0, Absolute Basophils 0, Platelet Estimate ADEQUATE, Hypochromic- Microcytic 1+, Poikilocytosis 1+, Target Cells RARE, Stomatocytes 1+, Elliptocytes RARE, PUBS MCHC 32.0 L Microbiology 12/15 1711 URINE ROUT: Urine Culture - COMP BETA STREP GROUP B Assessment/Plan Assessment/Plan Assessment: 1. Hypertension 2. Hyperlipidemia 3. Chronic systolic heart failure 4. Syncope, likely secondary to sepsis and volume depletion 5. Sepsis secondary to urinary tract infection possible pneumonia Plan: * Contine current cardiac medications. * No further inpatient cardiac workup is needed at this time. * Follow up in the office one to 2 weeks after discharge. Continue telemetry? No
--- NOTE | 2016-12-16 13:05 | Patient Discharge Instructions ---
Discharge Instructions General Discharge Information You were seen/treated for: Bronchitis UTI Special Instructions: Please follow up with primary care provider within [address] Junior (invasive cardiovascular technologist) within 2 weeks. please use proventil for one week. Diet Continue normal diet: Yes Activity Full Activity/No Limits: Yes (as tolerated) Acute Coronary Syndrome Inclusion Criteria At DC or during hospital stay patient has or had the following: ACS DIAGNOSIS No Discharge Core Measures Meds if any: Prescribed or Continued at Discharge Meds if any: NOT Prescribed or Continued at Discharge Congestive Heart Failure Inclusion Criteria At DC or during hospital stay patient has or had the following: CHF DIAGNOSIS No Discharge Core Measures Meds if any: Prescribed or Continued at Discharge Meds if any: NOT Prescribed or Continued at Discharge Cerebrovascular accident Inclusion Criteria At DC or during hospital stay patient has or had the following: CVA/TIA Diagnosis No Discharge Core Measures Meds if any: Prescribed or Continued at Discharge Meds if any: NOT Prescribed or Continued at Discharge Venous thromboembolism Inclusion Criteria VTE Diagnosis No VTE Type NONE VTE Confirmed by (Test) NONE Discharge Core Measures - Per Current guidelines, there needs to be overlap - treatment for the first 5 days of Warfarin therapy. - If discharged on Warfarin prior to 5 days of - overlap therapy, the patient will need to be - assessed for post discharge needs including - *Post discharge parental anticoagulation - *Warfarin and/or parental anticoagulation education - *Follow up date to check INR post discharge At least 5 days overlap therapy as Inpatient No Meds if any: Prescribed or Continued at Discharge Note: Overlap Therapy is Warfarin and Anticoagulant Meds if any: NOT Prescribed or Continued at Discharge
[2016-12-16 13:20] VITALS: BP 124/74
[2016-12-16 16:23] VITALS: BP 110/60
[2016-12-16 19:57] VITALS: BP 130/60
[2016-12-17] MEDS ORDERED: AZITHROMYCIN250 M1 PO ×2 (06:36→11:12)
[2016-12-17] MEDS ORDERED: AMOXICILLIN500 M2 PO (06:38)
[2016-12-17 06:54] VITALS: BP 104/60
[2016-12-17 08:15] LABS: ABSOLUTE BASOPHIL COUNT 0.1 /CUMM (0.0-0.2); ABSOLUTE EOSINOPHIL COUNT 0.2 /CUMM (0.0-0.7); ABSOLUTE GRANULOCYTE CT 2.9 /CUMM (1.4-6.5); ABSOLUTE LYMPH COUNT 2.8 /CUMM (1.2-3.4); ABSOLUTE MONOCYTE COUNT 0.3 /CUMM (0.10-0.60); BASOPHIL % 1.6 % (0.0-2.0); GRANULOCYTE % 46.2 % (42.2-75.2); HEMATOCRIT 27.8 % (37-47); MEAN CORPUSCULAR HGB 19.8 PG (27.0-31.0); MEAN CORPUSCULAR HGB CONC 31.5 G/DL (33.0-37.0); MEAN PLATELET VOLUME 7.5 FL (7.4-10.4); PLATELET COUNT 318 /CUMM (130-400); RBC DISTRIBUTION WIDTH 14.8 % (11.5-14.5); RED BLOOD CELL CT 4.42 /CUMM (4.20-5.40); WHITE BLOOD CELL COUNT 6.4 /CUMM (4.8-10.8)
--- NOTE | 2016-12-17 09:26 | PN- Housestaff ---
See Addendum Subjective Follow-up For: Sepsis secondary to UTI-resolved UTI Acute tracheobronchitis Complaints: no complaints Subjective: Patient was seen and examined this morning. She is alert, awake and oriented to time place and person. No acute events monitored overnight. Resting comfortably in bed. Reports feeling better overall with no new complaints. Denies any dyspnea, chest pain, palpitations, lightheadedness, dizziness, abdominal pain. No fever, chills, flank pain, dysuria, frequency, urgency Vitals with stable She feels ready to go home this morning Review of Systems Constitutional: Denies: chills, fever. Objective Last 24 Hrs of Vital Signs/I&O Vital Signs Date Time Temp Pulse Resp B/P B/P Pulse O2 O2 Flow FiO2 Mean Ox Delivery Rate 12/17 0800 96 Room Air 12/17 0654 97.8 73 20 104/60 91 Room Air 12/16 1957 98.5 70 20 130/60 91 Room Air 12/16 1710 Room Air 12/16 1623 98.4 61 20 110/60 93 Room Air 12/16 1320 89 124/74 Intake & Output 12/17 1600 12/17 0800 12/17 0000 Intake Total 100 Output Total 350 Balance -250 Intake, Oral 100 Output, Urine 350 Physical Exam General Appearance: Alert, Oriented X3, Cooperative, No Acute Distress Skin: No Rashes, No Breakdown HEENT: Atraumatic, PERRLA, EOMI, Mucous Membr. moist/pink Neck: Supple, No JVD, No thryomegaly Lymphatic: Cervical nl Cardiovascular: Normal S1, Normal S2 Lungs: Normal Air Movement Abdomen: Normal Bowel Sounds, Soft, No Tenderness Extremities: No Clubbing, No Cyanosis, No Edema Vascular: Pulses Symmetrical Current Medications: Current Medications Sig/Luz Elena Start time Last Medication Dose Route Stop Time Status Admin Acetaminophen 650 MG Q6P PRN 12/14 1800 AC PO Albuterol Sulfate 3 ML Q4P PRN 12/16 1130 AC 12/16 INH 1358 Albuterol Sulfate 3 ML EVERY 4 HRS/AWAKE 12/15 1200 DC 12/17 INH 0933 Amoxicillin 500 MG BID 12/17 1000 AC 12/17 PO 0926 Aspirin 81 MG DAILY 12/15 1000 AC 12/17 PO 0926 Atorvastatin Calcium 80 MG 1700 12/15 1700 AC 12/16 PO 1819 Azithromycin 250 MG DAILY 12/16 1000 AC 12/17 PO 0926 Ceftriaxone Sodium 1,000 MG DAILY 12/15 1000 DC 12/16 IV 1047 Cholecalciferol 1,000 IU DAILY 12/15 1000 AC 12/17 PO 0926 Guaifenesin 600 MG Q12 12/16 1000 AC 12/17 PO 0926 Heparin Sodium 5,000 UNIT Q8 12/14 2200 AC 12/17 (Porcine) SC 0517 Hydromorphone HCl 0.5 MG Q4P PRN 12/14 1800 AC IV Loratadine 10 MG DAILY PRN 12/15 0745 AC 12/15 PO 1024 Meclizine HCl 12.5 MG BID 12/14 2200 AC 12/17 PO 0926 Patient Medication 1 ED .STK-MED ONE 12/16 1430 VT Teaching ED 12/16 1431 Last 24 Hrs of Lab/Shai Results Last 24 Hrs of Labs/Mics: Laboratory Tests 12/17/16 0626: Anion Gap 13, Estimated GFR > 60, BUN/Creatinine Ratio 22.0, Magnesium 1.5 L, CBC w Diff NO MAN DIFF REQ, RBC 4.42, MCV 63.0 L, MCH 19.8 L, RDW 14.8 H, MPV 7.5, Gran % 46.2, Lymphocytes % 44.2, Monocytes % 5.0, Eosinophils % 3.0, Basophils % 1.6, Absolute Granulocytes 2.9, Absolute Lymphocytes 2.8, Absolute Monocytes 0.3, Absolute Eosinophils 0.2, Absolute Basophils 0.1, PUBS MCHC 31.5 L Assessment/Plan Assessment: 76 year old female with PMH of HTN, HLD, and CAD presenting with multiple complaints including ough with expectoration, diarrhea, nausea, vomiting, decreased oral intake, dizziness, and presyncopal episode with a recentl fall. Most likely decompensation from UTI and dehydration. # Sepsis 2/2 UTI and possible PNA WBC and LA on admission elevated with HR over 90. Most likely source of infection is urological origin given the UA showing large leuk esterase with high epith cells, WBC and bacteria. Although patient has no urinary sxs we will treat for UTI. LA trended down. PNA was initially suspected but this is unlikely in the setting of negative CXR x 2 and clinical presentation. Pt was placed on CTX and Zithromax IV empirically for PNA upon admission. * ContinueD IV CTX and Zithromax for 3days. * Discharging this mrng on oral azithromycin for 1 more days for acute bronchitis and oral Augmentin for 4 more days for UTI * MUCINEX bd for 7days for cough. * Follow urine/blood cultures * Hypotension resolved with IVF resucstation. As such hypotension is more attributable to dehydration than sepsis. * Rule out c.diff in the context of persistent diarrhea - pending report # Diarrhea Patient also had diarrhea with intermitten nausea vomiting for the past 2 weeks. Most likely viral gastroenteritis with a possibility of celiac disease contributing. * Check c. diff- pending * Imodium if negtaive for c. diff # Presyncope and recent fall Most likely 2/2 dehydration from diarrhea. Patient received 3 L normal saline with an improvement in dizziness. BP remains in a stable normal range. * Hold IV hydration as patient is tolerating PO intake * Monitor vitals closely for hypotension * Orthostats * PT/OT * Serial troponins & EKGs negative # History of HTN * Hold antihypertensives Norvasc and lisinopril for now # H/o HLD, CAD * Continue home doses of aspirin and statin - Gluten-free diet - Mild pain pathway - DVTppx with Lovenox - Full code. Problem List: 1. Nausea 2. Sepsis 3. Syncope Pain Ratin Pain Location: n/a Pain Goal: Remain pain free Pain Plan: sp Tomorrow's Labs & Rationales: none
[2016-12-17] MEDS ORDERED: MUCINEX600 M1 PO (11:12)
== END 2016-12-17 12:30 | DRG 690 ==
LOC: ERH 15:12 → 1NO 17:39 → ERHI 17:39 → 2NA 17:39 → ENRESERV 18:01 → CANRESERV 18:01 → EDBEDREQ 19:03 → EDBEDREQTM 19:04 → ENRESERV 19:06 → 1NO 20:58 → 2NA 12-16 19:41 → ENPENDDIS 12-17 09:26 → 2NA 12-17 12:30
PROVIDERS: Internal Medicine Nephrology; Physician Assistant Medical; ADMIT Internal Medicine
DX: N39.0 Urinary tract infection, site not specified (principal); N17.9 Acute kidney failure, unspecified; E87.2 Acidosis; I11.0 Hypertensive heart disease with heart failure; E86.0 Dehydration; I50.22 Chronic systolic (congestive) heart failure; J44.0 Chronic obstructive pulmonary disease with (acute) lower respiratory infection; J20.9 Acute bronchitis, unspecified; E78.5 Hyperlipidemia, unspecified; I25.2 Old myocardial infarction; K90.0 Celiac disease; I25.10 Atherosclerotic heart disease of native coronary artery without angina pectoris; B95.1 Streptococcus, group B, as the cause of diseases classified elsewhere; A08.4 Viral intestinal infection, unspecified; F41.9 Anxiety disorder, unspecified; Z85.79 Personal history of other malignant neoplasms of lymphoid, hematopoietic and related tissues
CPT/HCPCS: 1NP; 2NAP; 36415; 72170; 81001; 82436; 87040; 87070; 87086; 87147; 97110-GO; 97116-GO; 97161-GP; J0131; J0456; J0696; J1644; J2310; J3490; J7040